=== PATIENT | female | born 1990 | race Two or more races ===

== ENCOUNTER 2018-05-03 20:59 | Emergency (ER) | payer MEDICAID ==
[~2018-05-03] VITALS: Ht 165.1 cm; Wt 113.4 kg
[2018-05-03 21:41] VITALS: BP 115/68
== END 2018-05-04 02:00 | disposition left against medical advice (07) ==
LOC: ER 20:59
DX: R10.9 Unspecified abdominal pain (principal); R07.0 Pain in throat; Z53.21 Procedure and treatment not carried out due to patient leaving prior to being seen by health care provider